=== PATIENT | male | born 1990 | race Caucasian/White ===

== ENCOUNTER 2024-07-12 02:48 | Emergency (ER) | payer BC ==
[~2024-07-12] VITALS: Ht 175.3 cm; Wt 67.0 kg
[2024-07-12 03:21] VITALS: O2SAT 99
[2024-07-12 04:30] VITALS: BP 122/68; PULSE 97; RESP 12; TEMP 37.16964; O2SAT 99
== END 2024-07-12 05:17 | disposition home or self-care (01) ==
LOC: ER 02:48
DX: U07.1 COVID-19 (principal)
CPT/HCPCS: 87426; 99283